=== PATIENT | female | born 1960 | race African-American/Black ===

== ENCOUNTER 2017-12-26 18:52 | Emergency (ER) | payer OTHER ==
[2017-12-26 19:08] VITALS: BP 169/81
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
[2017-12-26] MEDS ORDERED: ACETAMINOPHEN 325 MG TABLET PO ONE (19:51)
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
== END 2017-12-26 20:26 | disposition home or self-care (01) ==
LOC: ER 18:52
DX: M79.651 Pain in right thigh (principal); V89.2XXA Person injured in unspecified motor-vehicle accident, traffic, initial encounter
CPT/HCPCS: 99283